=== PATIENT | male | born 1990 | race Caucasian/White ===

== ENCOUNTER 2018-12-04 20:03 | Emergency (ER) | payer MEDICAID ==
[~2018-12-04] VITALS: Ht 172.7 cm; Wt 55.1 kg
[2018-12-04] MEDS ORDERED: LORA10TA7 PO (20:57)
[2018-12-04 21:12] VITALS: BP 124/87
== END 2018-12-04 21:13 | disposition home or self-care (01) ==
LOC: ER 20:04
DX: J30.2 Other seasonal allergic rhinitis (principal); Z88.0 Allergy status to penicillin; Z79.899 Other long term (current) drug therapy
CPT/HCPCS: 99282